=== PATIENT | female | born 1955 | race Hispanic/Latino ===

== ENCOUNTER → 2018-12-10 | Outpatient (CLI) | payer OTHER | END | disposition home or self-care (01) | LOC: OIH 14:50 | PROVIDERS: ATTEND Internal Medicine Cardiovascular Disease | DX: Z13.6 Encounter for screening for cardiovascular disorders (principal) | CPT/HCPCS: 75571 ==

== ENCOUNTER 2023-09-26 21:23 | Emergency (ER) | payer MEDICARE ==
[~2023-09-26] VITALS: Ht 165.1 cm; Wt 84.8 kg
[2023-09-26 22:54] LABS: APPEARANCE,URINE CLEAR (CLEAR); BILIRUBIN,URINE NEGATIVE (NEGATIVE); COLOR,URINE COLORLESS (YELLOW); GLUCOSE, URINE (UA) NEGATIVE (NEGATIVE); KETONES,URINE NEGATIVE (NEGATIVE); LEUKOCYTE ESTERASE ,URINE 75 Leu/uL (NEGATIVE); NITRATE,URINE NEGATIVE (NEGATIVE); OCCULT BLOOD,URINE NEGATIVE (NEGATIVE); PH,URINE 6.5 (5.0-8.0); PROTEIN,URINE NEGATIVE (NEGATIVE); UROBILINOGEN,URINE 0.2 mg/dL (0.2-1.0)
[2023-09-26 22:59] LABS: ADD UA MICROSCOPIC YES
[2023-09-26] MEDS ORDERED: MAG/ALUM/SIMETH 30 ML UDCUP PO ONE (23:00)
[2023-09-26] MEDS ORDERED: LIDOCAINE HCL 2% VISCOUS 15 ML UDCUP PO ONE (23:00)
[2023-09-26 23:02] LABS: RBC,URINE 0-1 /HPF (0-1); SQUAMOUS EPITHELIAL CELL,UR RARE /HPF (0-2)
[2023-09-26 23:25] LABS: RAPID GROUP A STREP negative (NEGATIVE)
[2023-09-26 23:28] LABS: SARS-CoV-2, RNA, NAAT NEGATIVE SARS CoV-2 (NEGATIVE)
[2023-09-26 23:35] LABS: INFLUENZA TYPE A Negative For Type A (NEGATIVE); INFLUENZA TYPE B Negative For Type B (NEGATIVE)
[2023-09-27] MEDS ORDERED: NYST5ORA7 PO (00:05)
[2023-09-27] MEDS ORDERED: NITR100C PO (00:05)
[2023-09-27] MEDS ORDERED: NITROFURANTOIN MONOHYD/M-CRYST 100 MG CAPSULE PO ONE ×2 (00:11→00:30)
[2023-09-27 00:17] VITALS: BP 142/64; PULSE 72; RESP 18; O2SAT 98
== END 2023-09-27 00:15 | disposition home or self-care (01) ==
LOC: EDH 21:23
DX: N39.0 Urinary tract infection, site not specified (principal); K12.1 Other forms of stomatitis; I10 Essential (primary) hypertension; Z20.822 Contact with and (suspected) exposure to COVID-19
CPT/HCPCS: 81001; 87088; 87635; 87804; 87880

== ENCOUNTER 2024-01-31 09:44 | Emergency (ER) | payer MEDICARE ==
[~2024-01-31] VITALS: Ht 165.1 cm; Wt 81.2 kg
[~2024-01-31 09:44] MED LIST: NITR100C PO; NYST5ORA7 PO
[2024-01-31 10:03] VITALS: BP 146/70; PULSE 65; RESP 17; O2SAT 96
[2024-01-31 10:17] LABS: BASOPHILS # (AUTO) 0.03 K/uL (0.00-0.20); BASOPHILS % (AUTO) 0.4 % (0.0-5.0); EOSINOPHILS # (AUTO) 0.04 K/uL (0.00-0.70); EOSINOPHILS % (AUTO) 0.6 % (0.0-8.0); HEMATOCRIT 41.6 % (36-48); IMMATURE GRANULOCYTE ABSOLUTE 0.03 K/uL (0-1); LYMPHOCYTES # (AUTO) 2.5 K/uL (1.0-4.8); LYMPHOCYTES % (AUTO) 35.5 % (21.0-51.0); MEAN CORPUSCULAR HEMOGLOBIN 33.7 pg (27.0-33.0); MEAN CORPUSCULAR HGB CONC 33.4 g/dL (32.0-36.0); MEAN CORPUSCULAR VOLUME 100.7 fL (79-99); MONOCYTES # (AUTO) 0.5 K/uL (0.1-1.0); MONOCYTES % (AUTO) 6.6 % (3.0-13.0); NEUTROPHILS # (AUTO) 4.1 K/uL (1.8-7.7); NEUTROPHILS % (AUTO) 56.5 % (40.0-77.0); PLATELET COUNT (AUTO) 221 K/uL (130-400); RED BLOOD CELL COUNT(AUTO) 4.13 MIL/uL (4.00-5.50); RED CELL DISTRIBUTION WIDTH 13.4 % (11.0-15.5); WHITE BLOOD COUNT (AUTO) 7.2 K/uL (4.8-10.8)
[2024-01-31 10:19] LABS: APPEARANCE,URINE CLEAR (CLEAR); BILIRUBIN,URINE NEGATIVE (NEGATIVE); COLOR,URINE YELLOW (YELLOW); GLUCOSE, URINE (UA) NEGATIVE (NEGATIVE); KETONES,URINE 5 mg/dL (NEGATIVE); LEUKOCYTE ESTERASE ,URINE 75 Leu/uL (NEGATIVE); NITRATE,URINE NEGATIVE (NEGATIVE); OCCULT BLOOD,URINE NEGATIVE (NEGATIVE); PH,URINE 6.5 (5.0-8.0); PROTEIN,URINE 20 mg/dL (NEGATIVE); UROBILINOGEN,URINE 0.2 mg/dL (0.2-1.0)
[2024-01-31 10:20] LABS: ADD UA MICROSCOPIC YES
[2024-01-31 10:25] LABS: BACTERIA,URINE RARE /HPF (None Seen); MUCUS,URINE RARE LPF (None Seen); SQUAMOUS EPITHELIAL CELL,UR RARE /HPF (0-2); TRANSITIONAL EPI CELLS,URINE RARE /HPF (None Seen)
[2024-01-31 10:26] LABS: CREATININE 1.1 mg/dL (0.5-1.0); POTASSIUM 4.6 mmol/L (3.5-5.1)
[2024-01-31] MEDS: ACETAMINOPHEN 500 MG TABLET PO ONE (10:36)
[2024-01-31] MEDS: PHENAZOPYRIDINE HCL 200 MG TABLET PO ONE (10:36)
[2024-01-31] MEDS ORDERED: PHEN-847 PO (11:13)
[2024-01-31] MEDS ORDERED: MACR100 PO (11:13)
== END 2024-01-31 11:27 | disposition home or self-care (01) ==
LOC: EDH 09:44
DX: N39.0 Urinary tract infection, site not specified (principal); I10 Essential (primary) hypertension; E78.00 Pure hypercholesterolemia, unspecified; E03.9 Hypothyroidism, unspecified; Z79.899 Other long term (current) drug therapy
CPT/HCPCS: 36415; 80048; 81001; 85025; 87077; 87088; 87186

== ENCOUNTER 2025-06-06 12:00 | Emergency (ER) | payer MEDICARE, MEDICAID ==
[~2025-06-06] VITALS: Ht 165.1 cm; Wt 72.6 kg
[~2025-06-06 12:00] MED LIST changes: +IVER3 PO; +MACR100 PO; +METH4TAB3 PO; +NYST100033 PO; -NYST5ORA7 PO; +PHEN-847 PO
[2025-06-06] MEDS ORDERED: IVER3TAB PO (13:04)
[2025-06-06] MEDS ORDERED: HYDR-3421 PO (13:04)
--- NOTE | 2025-06-06 13:14 | ERN ---
ED Note History of Present Illness Stated Complaint: SCABBIES Chief Complaint: Other Problems Time Seen by MD: 12:18 Time Seen by Midlevel: 12:30 Dictation: Ms. Fleming is a 70-year-old female with history of hypertension, hypothyroidism, and hyperlipidemia who presented to the emergency department for evaluation of itching. States that she has been dealing with scabies infestation for the past four years. She has sought care with her PCP as well as guest services associate and has not gotten answers. She was seen in this ER in June and prescribed dose of methylprednisolone as well as ivermectin. She was told at that time she may need to repeat treatment in a month. She states that she continues to have intense itching/discomfort and would like to be treated again. She has not followed up with. She states she does not trust her PCP. She states that they keep the house very clean they have lived in his home for five years and that it is brand new. She states that they have had exterminators to their home several times. Family members living in the same home do not have same symptoms. There was no report of fever, chills, shortness of breath, cough, chest pain, palpitations, edema, abdominal pain, nausea, vomiting, hematemesis, constipation, diarrhea, melena, hematochezia, dysuria, headache, dizziness, or focal weakness/paresthesia Allergies: Coded Allergies: No Known Allergies (Unverified Allergy, Unknown, 09/26/23) Home Meds Active Scripts Methylprednisolone (Medrol) 4 Mg Tab.ds.pk, 1 TAB PO AD for 6 Days, #21 TAB 0 Refills 6 on day 1 then reduce by one tablet daily until gone Prov:BERTHA DYE NP 05/25/25 Ivermectin (Stromectol) 3 Mg Tab, 6 TAB PO ONCE for SCABIES, #12 TAB 0 Refills SIX TABLETS BY MOUTH X1 DOSE. MAY REPEAT DOSE IN 10 DAYS Prov:BERTHA DYE NP 05/25/25 Phenazopyridine HCl (Pyridium) 200 Mg Tab, 200 MG PO TIDPC for 5 Days, #15 TAB TAKE WITH FOOD TO PREVENT STOMACH UPSET. Prov:BERTHA DYE NP 01/31/24 Nitrofurantoin/Nitrofuran Mac (Macrobid) 100 Mg Cap, 1 CAP PO BID for 7 Days, #14 CAP 0 Refills Prov:BERTHA DYE REHABILITATION TECH 01/31/24 Nystatin (Nystatin) 100,000 Unit/Ml Oral.susp, [id number] UNIT PO QIDP, #200 ML 0 Refills Prov:IZZY LUBIN REHABILITATION TECH 09/27/23 Nitrofurantoin Macrocrystal (Nitrofurantoin) 100 Mg Capsule, 100 MG PO BID for 7 Days, #14 CAP 0 Refills Prov:IZZY LUBIN REHABILITATION TECH 09/27/23 Past Medical History Past Medical History: High Cholesterol, Hypertension, Hypothyroid, Other Additional Past Medical Hx: SCABBIES Surgical History: None Social History: Lives with family History: Not Applicable RN Note Reviewed/Agreed w/PFSH: Yes Review of System Dictation REVIEW OF SYSTEMS: CONSTITUTIONAL: Patient denies fevers, chills, sweats and weight changes. EYES: Patient denies any visual symptoms. EARS, NOSE, AND THROAT: No difficulties with hearing. No symptoms of rhinitis or sore throat. CARDIOVASCULAR: Patient denies chest pains, palpitations, orthopnea and paroxysmal nocturnal dyspnea. RESPIRATORY: No dyspnea on exertion, no wheezing or cough. GI: No nausea, vomiting, diarrhea, constipation, abdominal pain, hematochezia or melena. : No urinary hesitancy or dribbling. No nocturia or urinary frequency. No abnormal urethral discharge. MUSCULOSKELETAL: No myalgias or arthralgias. NEUROLOGIC: No chronic headaches, no seizures. Patient denies numbness, tingling or weakness. PSYCHIATRIC: Patient denies problems with mood disturbance. No problems with anxiety. ENDOCRINE: No excessive urination or excessive thirst. DERMATOLOGIC: Reports persistent scabies infestation. Reports intense itching and pain. Initial Vital Sign VS Vital Signs Date Time Temp Pulse Resp B/P (MAP) Pulse Ox O2 Delivery O2 Flow Rate FiO2 06/06/25 12:15 98.2 86 18 130/64 97 Room Air Physical Exam Dictation Vital signs: Reviewed. Constitutional: No acute distress. Anxious. Significant other at bedside Head/Face: Normocephalic, atraumatic. Eyes: Periorbital areas with no swelling, redness, or edema. Lids and lashes are normal. Conjunctival injection is absent. Sclera anicteric. Pupils equal, round, reactive to light. ENT: Pinnas intact and no signs of trauma or erythema. Ear canals clear and no discharge. TMs no erythema. No nasal discharge or bleeding noted. Oropharynx with no exudate, redness, swelling, masses, exudates, or evidence of obstruction. Uvula midline. Mucous membranes moist. Neck: Trachea midline, no masses palpated, and no cervical lymphadenopathy. No swelling. Supple, full range of motion. Chest/Axilla: No tenderness, no crepitus, no paradoxical movement, no retractions. Cardiovascular: Regular rate, regular rhythm, no murmur, no gallops. Symmetric pulses. No peripheral edema. Respiratory: Respirations even and unlabored. Lung sounds clear; no wheezes, rales or rhonchi. Room air SpO2 97% Gastrointestinal: Inspection is normal. No distention is appreciated. Bowel sounds are normal. No mass or organomegaly . There is no tenderness. No rebound. No rigidity. No voluntary or involuntary guarding. No Wong's sign. Neurological: Normal speech, gross motor function intact, gross sensory function intact. No focal weakness/Paresthesia. Musculoskeletal/Extremities: All extremities have full range of motion, no pain or tenderness on palpation. Symmetric pulses. Integumentary: Skin is normal color, warm and dry. Cap refill less than 3 seconds. Are both while small scabbed lesions to the upper back, arms, and upper thighs. Noted scratch burgess. There are no areas of erythema/warmth. There are no open wounds with drainage. She continues to scratch intensely. ED Course ED Course Vital Signs Date Time Temp Pulse Resp B/P (MAP) Pulse Ox O2 Delivery O2 Flow Rate FiO2 06/06/25 12:15 98.2 86 18 130/64 97 Room Air Uneventful ED course. Patient has intense itching. She was given dose hydroxyzine IM and prescribed repeat dose of ivermectin was prescribed. She will follow up with your PCP and/or guest services associate. Medical Decision Making MDM MDM: Differential diagnosis: scabies infestation, cellulitis, abscess Rationale: Tests considered and ordered secondary to shared decision making include: Examination Previous outside records reviewed: Old ER visits. Risk of complication and/or morbidity or mortality of patient management: None Medications-Per medication reconciliation Need for hospitalization: Patient does not meet criteria for hospitalization. Need for emergency major/minor surgery: No There are no social concerns with this patient. Prescription drug management: Hydroxyzine, ivermectin Prescriptions will include symptomatic care Patient's prior external medical records from other ER visits were reviewed by me as indicated. Prior testing and results from previous visits were reviewed. Prior tests were taken into account with medical decision making and resource utilization, independent historian/historians were used to obtain complete medical history. I independently interpreted the test that were performed, results were reviewed by me and considered findings on radiology if ordered. Medical management and examination interpretation discussions were had by me with other qualified healthcare professionals as indicated for the patient's care. DX & DISP Disposition: Discharge Departure Impression: Primary Impression: Scabies infestation Additional Impression: Pruritic skin lesion Condition: Stable Scripts Ivermectin (Ivermectin) 3 Mg Tablet 5 TAB PO ONCE for 1 Day, #5 TAB 0 Refills Prov: IZZY LUBIN NP 06/06/25 Hydroxyzine HCl (Hydroxyzine HCl) 25 Mg Tablet 1 TAB PO TID for anxiety, #20 TAB 0 Refills Prov: IZZY LUBIN NP 06/06/25 Additional Instructions: Take ivermectin with food to help your body absorbs the medication. Itching may continue for 2-4 weeks after treatment, even if the mice or gone. This is due to your body's reaction to the mites and there waist. You can try oral antihistamines (like cetirizine or diphenhydramine) or topical anti-itch cream to relieve symptoms. All household members and close contact should be treated at the same time even if they do not have symptoms. Wash all clothing, bedding, and towels used in the last 3-5 days in hot water and dry on high heat. Any items that could not be wash should be sealed in a plastic bag for least three days, since might can not survive off the human body for longer than that. Vac carpets, rugs, and furniture. Follow up with your primary care provider or guest services associate in 2-4 weeks if symptoms persist. Return sooner if you develop worsening rash, signs of skin infection (increased redness, pain, swelling, or pus), or if itching is not improved after four weeks. Referrals: ZENOBIA MANN (PCP) Time of Disposition: 13:07 IZZY LUBIN NP Jun 06, 2025 13:14
[2025-06-06 13:19] VITALS: BP 131/61; PULSE 71; RESP 17; TEMP 98.1; O2SAT 95
== END 2025-06-06 13:38 | disposition home or self-care (01) ==
LOC: EDH 12:00
DX: B86 Scabies (principal); L29.9 Pruritus, unspecified; E78.00 Pure hypercholesterolemia, unspecified; I10 Essential (primary) hypertension; F41.9 Anxiety disorder, unspecified; E03.9 Hypothyroidism, unspecified
CPT/HCPCS: 99283; 96372; J3410